=== PATIENT | female | born 1965 | race Caucasian/White ===

== ENCOUNTER 2023-07-18 22:03 | Emergency (ER) | payer OTHER ==
[2023-07-18] MEDS ORDERED: Ketorolac Tromethamine 30 MG/ML VIAL ONE (22:38)
== END 2023-07-19 00:28 | disposition home or self-care (01) ==
LOC: NAV ERS 22:03
DX: S06.0X0A Concussion without loss of consciousness, initial encounter (principal); S76.912A Strain of unspecified muscles, fascia and tendons at thigh level, left thigh, initial encounter; W01.198A Fall on same level from slipping, tripping and stumbling with subsequent striking against other object, initial encounter
CPT/HCPCS: 70450; 96372; J1885

== ENCOUNTER 2023-10-23 20:07 | Emergency (ER) | payer BC, OTHER ==
[2023-10-23] MEDS ORDERED: traMADol HCl 50 MG TAB ONE (20:50)
[2023-10-23] MEDS ORDERED: Naproxen 500 MG TAB ONE (21:16)
== END 2023-10-23 21:25 | disposition home or self-care (01) ==
LOC: NAV ERS 20:07
DX: S50.02XA Contusion of left elbow, initial encounter (principal); W01.10XA Fall on same level from slipping, tripping and stumbling with subsequent striking against unspecified object, initial encounter

== ENCOUNTER 2024-08-10 10:23 | Outpatient (CLI) | payer BC | END 2024-08-10 10:24 | disposition home or self-care (01) | LOC: NAV RAD 10:23 | PROVIDERS: ATTEND Nurse Practitioner Family | DX: R05.3 Chronic cough (principal) | CPT/HCPCS: 71046 ==